=== PATIENT | male | born 1940 | race Caucasian/White ===

== ENCOUNTER → 2016-11-28 | Outpatient (CLI) | payer OTHER ==
[~2016-11-28] MED LIST: AMLO-114 PO; ASPI-232 PO; ATOR-22 PO; CHOL20005 PO; COEN1CAP17 PO; HYDR25TA4 PO; LSN40 PO; MULT-506 PO; OFLO0.3S4 OPL; OMEG12006 PO; PRED1SUS3; PRED1SUS3 OPR
== END | disposition home or self-care (01) ==
LOC: C.PATHSPEC 17:42
PROVIDERS: ATTEND Plastic Surgery
DX: Z85.828 Personal history of other malignant neoplasm of skin (principal); L90.5 Scar conditions and fibrosis of skin